=== PATIENT | male | born 1950 | race Caucasian/White ===

== ENCOUNTER 2016-05-16 11:50 | Outpatient (CLI) | payer BC ==
[2016-05-16] VITALS (18 sets, daily range): BP systolic 10–138; BP diastolic 66–99; PULSE 51–89; TEMP 97.9–98.7
[~2016-05-16] VITALS: Ht 177.8 cm; Wt 90.0 kg
[~2016-05-16 11:50] MED LIST: ALDACTONE 25MG25 M1 PO; ASPIRIN E.C. 8181 MG PO; CEPHALEXIN500 M1 PO; K-DUR 2020 MEQ PO; LASIX 40MG TABL40 MG PO; NORCO 325 MG-51 TAB PO; OMEGA-3 FISH1200 MG PO; TOPROL XL 50MG50 MG PO; ZESTRIL2.5 MG PO
[2016-05-16] MEDS ORDERED: OMEGA-3 FISH1000 MG PO (12:40)
[2016-05-16] MEDS ORDERED: MULTI VITAMINS1 TAB PO (12:40)
[2016-05-16] MEDS ORDERED: LIPITOR20 MG PO (12:41)
[2016-05-16] MEDS ORDERED: LASIX 20MG TABL20 MG PO (12:42)
[2016-05-16] MEDS ORDERED: PRINIVIL2.5 MG PO (12:42)
[2016-05-16] MEDS ORDERED: TOPROL XL200 MG PO (12:43)
[2016-05-16 12:53] LABS: HEMATOCRIT 45.5 % (42.0-52.0); HEMOGLOBIN 15.9 g/dl (13.5-18.0); MEAN CELL VOLUME 88 fl (80.0-100.0); MEAN CORPUSCULAR HEMOGLOBIN 31 pg (27.0-31.0); MEAN CORPUSCULAR HGB CONC 35 g/dl (33.0-37.0); MEAN PLATELET VOLUME 11.6 fl (7.4-10.4); PLATELET COUNT 140 K/mm3 (130-400); RED BLOOD COUNT 5.17 M/mm3 (4.20-5.60); REDCELL DISTRIBUTION WIDTH-CV 13.6 % (11.5-14.5); WHITE BLOOD COUNT 8.1 K/mm3 (4.8-10.8)
[2016-05-16 12:55] LABS: PROTHROMBIN TIME 11.4 SECONDS (9.7-12.8)
[2016-05-16 13:01] LABS: CALCIUM 9.8 mg/dL (8.4-10.2); CREATININE, serum 1.23 mg/dL (0.66-1.25); POTASSIUM 4.3 mmol/L (3.4-5.0)
== END 2016-05-16 15:31 | disposition home or self-care (01) ==
LOC: COL.RAD 11:50
PROVIDERS: Internal Medicine Interventional Cardiology
DX: I34.0 Nonrheumatic mitral (valve) insufficiency (principal)
CPT/HCPCS: J2250; J3010

== ENCOUNTER → 2019-07-05 | Outpatient (CLI) | payer MEDICARE, OTHER ==
[~2019-07-05] MED LIST changes: +LASIX 20MG TABL20 MG PO; +LIPITOR20 MG PO; +MULTI VITAMINS1 TAB PO; +OMEGA-3 FISH1000 MG PO; +PRINIVIL2.5 MG PO; +TOPROL XL200 MG PO
== END ==
LOC: COL.RAD 11:23
DX: N18.3 Chronic kidney disease, stage 3 (moderate) (principal)

== ENCOUNTER 2019-12-26 14:43 | Observation (INO) | payer MEDICARE, OTHER ==
[~2019-12-26] VITALS: Ht 172.7 cm; Wt 82.8 kg
--- NOTE | 2019-12-26 17:47 | NUR ---
Patient arrived to the floor at this time. He is alert and oriented and independently walking within room. He is aware of his POC. IV will be initiated post assessment. Physical assessment was unremarkable. Patient denies pain or discomfort at this time. is currently at the bedside. No other needs at this time. Call light is in reach.
[2019-12-26] MEDS ORDERED: SENOKOT S 50 MG1 TAB PO (18:11)
[2019-12-26] MEDS ORDERED: K-TAB20 PO (18:13)
[2019-12-26] MEDS ORDERED: FLOMAX 0.40.4 MG/CAP PO (18:17)
[2019-12-26] MEDS ORDERED: XARELTO20 MG PO (18:18)
[2019-12-26 18:30] VITALS: BP 124/69; PULSE 109; TEMP 97.8
--- NOTE | 2019-12-26 18:45 | NUR ---
Report received from Lili DINH. Pt lying in bed with at bedside. Denies any needs currently. Call light in reach. Will continue to monitor.
[2019-12-26 19:13] VITALS: BP 117/96; PULSE 94; TEMP 98
[2019-12-26 21:19] LABS: BASO % 0.1 % (0.0-2.0); EOS # 0.1 (0.0-0.7); EOS % 1.1 % (0-4.0); GRAN # 4.8 (1.4-6.5); GRAN % 64.2 % (42.2-75.2); HEMATOCRIT 44.5 % (42.0-52.0); LYMPH # 2.1 (1.2-3.4); MEAN CELL VOLUME 91 fl (80.0-100.0); MEAN CORPUSCULAR HEMOGLOBIN 31 pg (27.0-31.0); MEAN CORPUSCULAR HGB CONC 34 g/dl (33.0-37.0); MEAN PLATELET VOLUME 11.9 fl (7.4-10.4); MONO # 0.5 (0.1-0.6); MONO % 6.3 % (1.7-9.3); PLATELET COUNT 136 K/mm3 (130-400); RED BLOOD COUNT 4.87 M/mm3 (4.20-5.60); REDCELL DISTRIBUTION WIDTH-CV 14.6 % (11.5-14.5)
[2019-12-26 21:23] LABS: INR 1.1 (0.8-3.0); PROTHROMBIN TIME 11.9 SECONDS (9.7-12.8)
[2019-12-26 21:28] LABS: CALCIUM 9.4 mg/dL (8.4-10.2); CREATININE, serum 1.35 (0.66-1.25); POTASSIUM 4.3 mmol/L (3.4-5.0)
--- NOTE | 2019-12-26 21:38 | NUR ---
Assessment complete. Pt lying in bed. Ambulated to restroom independently, gait steady. Heart rate tachycardic, rhythm irregular. Lungs clear to auscultation. A&Ox4. IV fluids started at 50 ml/hr to left forearm IV. Consent for CHARLES/CV signed and placed on chart. Pt denies pain or other needs at this time. Will continue to monitor.
[2019-12-26 23:11] VITALS: BP 104/72; PULSE 93; TEMP 97.9
[2019-12-27] VITALS (11 sets, daily range): BP systolic 98–125; BP diastolic 74–768; PULSE 56–92; TEMP 97.5–98.4
--- NOTE | 2019-12-27 06:10 | NUR ---
Pt asleep throughout night without complaint. Remains in Afib, rate 80s-90s for most of night, per classroom monitor. Nothing to eat or drink since dinner last night. CHARLES/CV consent signed and on pt chart.
--- NOTE | 2019-12-27 09:27 | NUR ---
Assessment complete. Patient laying in bed awake and alert at this time. States he feels great, ksit wondering when his procedure will take place. Denies pain or discomfort. IV site is CD&I, IVF continue to infuse. No other needs were expressed at this time. is currently at the bedside. Call light is in reach.
--- NOTE | 2019-12-27 10:40 | NUR ---
Initial visit; Patient thanked Principal Strategist for looking in on him and offering God's blessings.
--- NOTE | 2019-12-27 11:10 | NUR ---
Spoke with Dr. Bennett to confirm that the patients home medications had not been restarted to which he told me to resume all home meds. Xarelto was discussed with him as patient was not sure on the dosage to which he told me to have him take 15 mg. I also confirmed that he would like the patient to take the metoprolol and xarleto prior to the cardioversion CHARLES, especially giv en his BP on 122/87, I was told to give the meds. Meds have been given.
--- NOTE | 2019-12-27 17:54 | NUR ---
Patient had an uneventful day. Waited patiently for his cardioversion this afternoon. He is very pleasant and understands that he will likely discharge tomorrow. Vitals were montiored after procedure and remained stable. Pt states that he feels great. Fluids continue to run. No other needs. Call light is in reach.
== END 2019-12-27 19:30 | disposition home or self-care (01) ==
LOC: MEDICAL 14:43
PROVIDERS: ADMIT Internal Medicine Interventional Cardiology
DX: I48.91 Unspecified atrial fibrillation (principal); I34.0 Nonrheumatic mitral (valve) insufficiency; I50.22 Chronic systolic (congestive) heart failure; Z79.82 Long term (current) use of aspirin; N18.9 Chronic kidney disease, unspecified
CPT/HCPCS: G0378; J2250; J2704

== ENCOUNTER 2020-02-14 10:24 | Day surgery (SDC) | payer MEDICARE, OTHER ==
[2020-02-14] VITALS (7 sets, daily range): BP systolic 95–124; BP diastolic 66–86; PULSE 57–107; TEMP 97.8
[~2020-02-14] VITALS: Ht 172.8 cm; Wt 89.1 kg
[~2020-02-14 10:24] MED LIST changes: +FLOMAX 0.40.4 MG/CAP PO; +K-TAB20 PO; +SENOKOT S 50 MG1 TAB PO; +XARELTO20 MG PO
[2020-02-14 11:22] LABS: POTASSIUM 4.8 mmol/L (3.4-5.0)
[2020-02-14 11:28] LABS: INR 1.5 (0.8-3.0); PROTHROMBIN TIME 16.6 SECONDS (9.7-12.8)
[2020-02-14 11:57] LABS: THYROID STIMULATING HORMONE 9.05 uIU/mL (0.465-4.680)
[2020-02-14] MEDS ORDERED: CORDARONE200 MG/TAB PO (12:03)
[2020-02-14] MEDS ORDERED: OMEGA-3 1000 MG1 CAP PO (12:03)
--- NOTE | 2020-02-14 13:15 | NUR ---
REPORT FROM YOAN DINH. PT IS AWAKE AND ALERT, PWD, SITTING UP IN BED, ON MONITOR, TELEMETRY IMPLEMENTED, PACED WITH UNDERLYING SINUS RHYTHM, RATE 60'S. PT AWARE OF POC, DENIES NEEDS.
--- NOTE | 2020-02-14 15:00 | NUR ---
PT IS READY FOR DISCHARGE. HE HAS RECOVERED WELL, REPEAT EKG HAS BEEN OBTAINED AND PT HAS REMAINED IN SINUS THROUGHOUT HIS RECOVERY. IV IS DC'D WITH CATH INTACT, DRESSING APPLIED. I HAVE REVIEWED DC AND FU INSTRUCTIONS WITH PT. HE DENIES ANY QUESTIONS AND REPORTS HAS HAD CHARLES/CV MULTIPLE TIMES AND HAS NOT HAD PROBLEMS. PT IS ESCORTED TO EXIT VIA WHEELCHAIR.
== END 2020-02-14 15:25 | disposition home or self-care (01) ==
LOC: COL.CAR 10:24
PROVIDERS: Internal Medicine Interventional Cardiology
DX: I48.0 Paroxysmal atrial fibrillation (principal); I08.3 Combined rheumatic disorders of mitral, aortic and tricuspid valves; I50.22 Chronic systolic (congestive) heart failure; N18.9 Chronic kidney disease, unspecified; Z95.810 Presence of automatic (implantable) cardiac defibrillator; Z79.01 Long term (current) use of anticoagulants; Z79.82 Long term (current) use of aspirin; Z79.899 Other long term (current) drug therapy
CPT/HCPCS: J2704; J7030

== ENCOUNTER 2020-03-11 15:17 | Outpatient (RCR) | payer MEDICARE, OTHER ==
[~2020-03-11 15:17] MED LIST changes: +CORDARONE200 MG/TAB PO; +OMEGA-3 1000 MG1 CAP PO
== END 2020-03-11 16:41 | disposition home or self-care (01) ==
LOC: COL.CR
DX: Z48.812 Encounter for surgical aftercare following surgery on the circulatory system (principal); I34.0 Nonrheumatic mitral (valve) insufficiency

== ENCOUNTER → 2020-03-20 | Outpatient (CLI) | payer MEDICARE, OTHER ==
[2020-03-20 09:02] LABS: HEMATOCRIT 46.8 % (42.0-52.0); HEMOGLOBIN 15.5 g/dl (13.5-18.0); MEAN CELL VOLUME 92 fl (80.0-100.0); MEAN CORPUSCULAR HEMOGLOBIN 31 pg (27.0-31.0); MEAN CORPUSCULAR HGB CONC 33 g/dl (33.0-37.0); MEAN PLATELET VOLUME 11.2 fl (7.4-10.4); PLATELET COUNT 171 K/mm3 (130-400); RED BLOOD COUNT 5.08 M/mm3 (4.20-5.60); REDCELL DISTRIBUTION WIDTH-CV 15.1 % (11.5-14.5)
[2020-03-20 09:18] LABS: CALCIUM 9.3 mg/dL (8.4-10.2); CREATININE, serum 1.88 (0.66-1.25); MAGNESIUM 2.3 mg/dL (1.6-2.3); POTASSIUM 4.9 mmol/L (3.4-5.0)
== END ==
LOC: COL.LAB 08:33
DX: I48.0 Paroxysmal atrial fibrillation (principal); I49.3 Ventricular premature depolarization; Z20.822 Contact with and (suspected) exposure to COVID-19

== ENCOUNTER 2020-04-29 16:24 | Outpatient (RCR) | payer MEDICARE, OTHER | END 2020-04-30 15:30 | disposition home or self-care (01) | LOC: COL.CR 16:24 | DX: Z48.812 Encounter for surgical aftercare following surgery on the circulatory system (principal); I34.0 Nonrheumatic mitral (valve) insufficiency ==

== ENCOUNTER 2020-07-29 16:07 | Outpatient (RCR) | payer SELFPAY | END 2020-07-30 | disposition home or self-care (01) | LOC: COL.CR | DX: Z02.89 Encounter for other administrative examinations (principal) ==

== ENCOUNTER 2020-10-28 14:43 | Outpatient (RCR) | payer SELFPAY | END 2020-10-29 | disposition home or self-care (01) | LOC: COL.CR | DX: Z02.89 Encounter for other administrative examinations (principal) ==

== ENCOUNTER 2021-06-09 14:42 | Outpatient (RCR) | payer SELFPAY | END 2021-06-10 | LOC: COL.CR | DX: Z29.8 Encounter for other specified prophylactic measures (principal) ==

== ENCOUNTER 2021-08-06 12:08 | Outpatient (RCR) | payer SELFPAY | END 2021-08-10 | LOC: COL.CR | DX: Z29.8 Encounter for other specified prophylactic measures (principal) ==

== ENCOUNTER 2021-09-08 14:46 | Outpatient (RCR) | payer SELFPAY | END 2021-09-09 | LOC: COL.CR | DX: Z29.8 Encounter for other specified prophylactic measures (principal) ==

== ENCOUNTER 2021-10-06 13:21 | Outpatient (RCR) | payer SELFPAY | END 2021-10-10 | LOC: COL.CR | DX: Z29.8 Encounter for other specified prophylactic measures (principal) ==

== ENCOUNTER → 2021-11-10 | Outpatient (RCR) | payer SELFPAY | LOC: COL.CR | DX: Z29.8 Encounter for other specified prophylactic measures (principal) ==